=== PATIENT | male | born 1965 | race Caucasian/White ===

== ENCOUNTER 2025-07-23 12:34 | Outpatient (OUT) | payer BC, SELFPAY ==
--- NOTE | 2025-07-23 12:52 | XR_ITS ---
The [address] [address] Patient Name: CARLOS AVENDANO MRN: [id number] date: 1965 Sex: M Assigned Patient Location: [facility] Current Patient Location: [facility] Accession/Order Number: [id number] Exam Date: 07/23/2025 12:45 Report Date: 07/23/2025 13:03 At the request of: LATANYA GARCIA Procedure: XR knee LT 4V LEFT KNEE - 4 views COMPARISON: None CLINICAL DATA: Left knee pain. No injury. AP, lateral, internal oblique and patellar views were obtained. There is no acute fracture or dislocation. There is slight lateral subluxation of the patella. No disproportionate joint space narrowing is identified. There is minor marginal spurring. There is a trace amount of joint fluid. No focal soft tissue swelling is noted. XR/XR knee LT 4V IMPRESSION: MINOR DEGENERATIVE CHANGES AND LATERAL PATELLAR SUBLUXATION. NO ACUTE BONY FINDINGS. Impression dictated by: Leora Charles M.D. 07/23/2025 1:03 PM Dictation Location: [employer] Electronically authenticated by: [id number] Date: 07/23/2025 13:03
== END 2025-07-23 12:35 | disposition home or self-care (01) ==
PROVIDERS: PCP Family Medicine; Visit Provider Family Medicine
DX: M25.562 Pain in left knee (principal); S83.012A Lateral subluxation of left patella, initial encounter
CPT/HCPCS: 73564